=== PATIENT | female | born 1940 | race Caucasian/White ===

== ENCOUNTER 2020-09-22 20:29 | Inpatient (IN) | payer MEDICARE, SELFPAY ==
[2020-09-22 20:17] VITALS: BP 143/95; PULSE 66; RESP 18; TEMP 36.9; O2SAT 100; BMI 28.8
[2020-09-22 20:30] VITALS: PULSE 65
--- NOTE | 2020-09-22 20:33 | HP.PCM.HOS_ITS ---
[facility] - General General Date of Admission: 09/22/20 HPI Narrative CAT SALGUERO, is a 80 F with a significant history of COPD, CHF, diabetes mellitus who presents with at least 2 weeks history of progressively worsening shortness of breath. Associated for symptoms is wheezes; productive cough of yellow sputum; orthopnea; paroxysmal nocturnal dyspnea; weight gain of about 10 pounds in 1 months. She denies any fever or chills. She reports poor appetite; fatigue and weakness. Reportedly previously he was infected with the COVID-19 virus and spent about 5 days at a hospital. She has not been vaccinated against Covid. She was transferred from [facility] because of lack of beds. [facility], [facility] Medical History (Updated 09/22/20 @ 22:[address] Anthony Sparks MD) Congestive heart failure COPD (chronic obstructive pulmonary disease) Diabetes mellitus, type 2 Allergy/AdvReac Type Severity Reaction Status Date / Time spironolactone Allergy Hives Verified 09/22/20 22:20 [From Aldactone] carvedilol [From Coreg] AdvReac PT UNSURE Verified 09/22/20 22:20 OF REACTION lisinopril AdvReac PT UNSURE Verified 09/22/20 22:20 OF REACTION meperidine [From Demerol] AdvReac PT UNSURE Verified 09/22/20 22:20 OF REACTION valsartan AdvReac PT UNSURE Verified 09/22/20 22:20 OF REACTION Family History (Updated 09/22/20 @ 20:[address] Anthony Sparks MD) Mother Diabetes Father Cancer Surgical History (Updated 09/22/20 @ 20:[address] Anthony Sparks MD) H/O: hysterectomy Hx of appendectomy Social History (Updated 09/22/20 @ 20:[address] Anthony Sparks MD) Smoking Status: Former smoker ROS Constitutional Constitutional: Reports anorexia and change in weight Eyes Eyes: Denies blurry vision, change in eye color, change in vision, discharge from eye(s), double vision, erythema, eye pain, loss of vision or other ENT HEENT: Denies abnormal hearing, dysphagia, ear pain, epistaxis, headache(s), hearing loss, nasal congestion, nasal discharge, post nasal drip, sinus pressure, sore throat or other Cardiovascular Cardiovascular: Reports dyspnea on exertion, orthopnea and paroxysmal nocturnal dyspnea Respiratory/Chest Respiratory/Chest: Reports cough, excessive phlegm production, shortness of breath with exertion and wheezing Gastrointestinal Gastrointestinal: Denies abdominal pain, coffee ground emesis, constipation, diarrhea, dyspepsia, hematemesis, hematochezia, loose stools, melena, nausea, vomiting or other Genitourinary Genitourinary: Denies burning urination, difficulty urinating, dysuria, hematuria, nocturia, urinary frequency, urinary hesitancy, urinary incontinence, urinary urgency or other Musculoskeletal Musculoskeletal: Denies arthralgias, back pain, joint pain, joint stiffness, joint swelling, myalgias, neck pain or other Neurologic Neurologic: Denies abnormal gait, abnormal speech, confusion, disequilibrium, dizziness, focal weakness, headache(s), numbness, paresthesias, seizure-like activity, seizures, syncope, tingling, tremor(s) or other Psychiatric Psychiatric: Denies anxiety, depression, homicidal ideation, suicidal ideation or other Endocrine Endocrinology: Denies change in body appearance, cold intolerance, excessive sweating, heat intolerance, polydipsia, polyuria or other Hematologic/Lymphatic Hematologic/Lymphatic: Denies anemia, easy bleeding, easy bruising, lymphadenopathy or other Allergic/Immunologic Allergic/Immunologic: Denies rhinitis, hives, eczemia, asthma or other Physical Exam Const alert and oriented x3 HEENT normocephalic and head/scalp atraumatic Resp Effort and Inspection: uses accessory muscles Auscultation: wheezes; Negative for crackles Cardio regular rate, regular rhythm, S1 normal heart sound and S2 normal heart sound Extremity full ROM Peripheral Pulses: Yes pulses 2+ throughout Skin No no rashes or lesions noted, No no wounds and skin turgor normal Neuro oriented x3 Sensorium / Orientation: awake and alert Psych affect normal Mood & Affect: Negative for depressed or anxious Assessment & Plan Assessment/Plan (1) Diabetes mellitus, type 2: QUALIFIERS: Diabetes mellitus complication status: without complication Diabetes mellitus chcf insulin use: with predatory animal exterminator use Qualified Code(s): E11.9 - Type 2 diabetes mellitus without complications; Z79.4 - manager long term care (current) use of insulin (2) COPD exacerbation: PLAN: Acute COPD exacerbation Impression of chest x-ray by radiology: Cardiomegaly. Pacemaker. Finding suggestive of CHF versus pneumonia. CXR independently reviewed confirms Chest x-ray with cardiomegaly; enlarged bilateral pulmonary vessels and opacities. Scheduled DuoNeb Albuterol as needed Received ceftriaxone and azithromycin at outside hospital ED. Ceftriaxone and azithromycin continued. Received Decadron at outside hospital. Solu-Medrol [id number] ordered. Oxygen as needed Review of emergency department labs from outside hospital showed negative rapid Covid screen. Review of emergency department labs from outside hospital showed normal white counts. Monitor BMP and CBC Abnormal x-ray and weight gain Pro BNP is also hospital was 645 high (normal 0-4 50) Continue home Lasix Check echocardiogram. Diabetes mellitus On home basal insulin. Glucose at outside hospital on BMP was 80. Accu-Chek with correction scale insulin ordered. Hold home basal insulin DVT prophylaxis: Eliquis continued Miscellaneous: Patient on Eliquis. She does not know why she is on Eliquis but states that it is for her heart and she has a pacemaker. Charges/Coding Visit Charges Inpatient E&M: 59818 Init Hosp L3
[2020-09-22 20:45] VITALS: O2SAT 100
[2020-09-22 22:20] VITALS: RESP 26; O2SAT 93
--- NOTE | 2020-09-22 22:56 | ECHOD_ITS ---
Reason For Study: SOB Procedure This was a 2D Doppler, Color Flow transthoracic echocardiogram. The study was technically difficult. Definity deferred d/t elevated PAP. Exam performed portable in patient room. Left Ventricle Normal left ventricle. The estimated ejection fraction is EF 60-65 %. Right Ventricle Normal right ventricle. Normal systolic function. Atria The left atrium is moderately enlarged. Normal right atrium. Mitral Valve There is moderate to severe mitral annular calcification. Mild (1+) mitral valve insufficiency. Tricuspid Valve Normal tricuspid valve. Moderate (2+) tricuspid valve insufficiency. Aortic Valve Aortic sclerosis, no stenosis. Pulmonic Valve The pulmonic valve is not well visualized. Great Vessels Normal aortic root. Pericardium/Pleural No pericardial effusion. MMode/2D Measurements & Calculations LVIDd: 4.7 cm IVSd: 1.1 cm Ao root diam: 3.0 cm LVIDs: 3.5 cm LVPWd: 1.1 cm RVDd: 4.3 cm FS: 26.6 % LAV(MOD-bp): 94.2 ml LVAd ap4: 26.1 cm2 SV(MOD-sp4): 54.1 ml LAV(MOD-bp) Indexed: 50.8 ml/m2 LVLd ap4: 6.8 cm LAV(MOD-sp2): 126.1 ml EDV(MOD-sp4): 81.6 ml LAV(MOD-sp4): 71.1 ml EDV(sp4-el): 85.3 ml LVAs ap4: 14.9 cm2 LVLs ap4: 6.4 cm ESV(MOD-sp4): 27.5 ml ESV(sp4-el): 29.4 ml EF(MOD-sp4): 66.3 % EF(sp4-el): 65.6 % SV(sp4-el): 55.9 ml LA A4 area: 25.3 cm2 LA dimension(2D): 5.0 cm RA A4 area: 19.5 cm2 Doppler Measurements & Calculations Lat Peak E' Kush: 5.7 cm/sec Med Peak E' Kush: 3.1 cm/sec MV V2 max: 142.8 cm/sec MV max P.2 mmHg MV V2 mean: 79.9 cm/sec MV mean P.9 mmHg MV V2 VTI: 40.2 cm Ao V2 max: 204.8 cm/sec LV V1 max: 109.1 cm/sec TR max kush: 414.9 cm/sec Ao max P.8 mmHg LV V1 max P.2 mmHg TR max P.9 mmHg Ao V2 mean: 146.9 cm/sec LV V1 mean P.0 mmHg Ao mean P.5 mmHg LV V1 mean: 77.8 cm/sec Ao V2 VTI: 46.5 cm LV V1 VTI: 25.4 cm MV P1/2t-pr_phl: 53.9 msec ECHO/Echo Complete Interpretation Summary The estimated ejection fraction is EF 60-65 %. Mild MR Moderate TR AV sclerosis pacemaker lead on R.side. Ordering Physician: Anthony Sparks Performed By: Ani Mcclendon RDCS, RVT
[2020-09-22 23:00] VITALS: PULSE 66
[2020-09-22] MEDS: guaiFENesin 1,200 MG Tablet 1200 MG PO (23:46)
[2020-09-22] MEDS: 0.9% Saline Lock 10 ML Syringe IV (23:52)
[2020-09-23] VITALS (15 sets, daily range): BP systolic 110–139; BP diastolic 38–50; PULSE 63–79; RESP 16–20; TEMP 36.4–36.8; O2SAT 91–98
[2020-09-23] MEDS: traZODone 100 MG Tablet 200 MG PO ×2 (00:04→21:48)
[2020-09-23 00:06] LABS: Bedside Glucose 369 mg/dL (70-110)
[2020-09-23 05:29] LABS: Absolute Lymphocyte Count 0.68 X10^3/uL (0.83-4.51); Absolute Neutrophil Count 9.5 X10^3/uL (2.0-7.7); Basophil# 0.01 X10^3/uL; Basophil% 0.1 % (0-1); Hematocrit 36.5 % (37-47); Hemoglobin 11.6 g/dL (12.0-15.0); Lymphocyte # 0.68 X10^3/ul (0.83-4.51); Lymphocyte % 6.6 % (19-41); Mean Corp Hgb Conc 31.8 g/dL (32-36); Mean Corpuscular Hgb 28.9 pg (27.0-32.0); Mean Platelet Vol. 9.8 fl (6.2-12.0); Monocyte# 0.09 X10^3/uL; Monocyte% 0.9 % (0-10); NRBC Flagged by Analyzer 0 % (0-5); Neutrophil # 9.49 X10^3/uL (2.7-7.7); Neutrophil % 92.1 % (47-70); Platelet Count 159 K/mm3 (150-450); RBC Distribution Width CV 13.2 % (11.6-14.6); RBC Distribution Width SD 44.6 fl (35.1-43.9); Red Blood Count 4.01 M/mm3 (4.2-5.4); White Blood Count 10.3 K/mm3 (4.4-11.0)
[2020-09-23 05:46] LABS: Anion Gap 7 (5-15); BUN 26 mg/dL (7-18); BUN/Creat Ratio 19.4 RATIO (10-20); Calcium,Total 8.7 mg/dL (8.5-10.1); Chloride 104 mmol/L (98-107); Creatinine, Serum 1.34 mg/dL (0.55-1.02); EST Glomerular Filtration Rate 40 mL/min (>60); Est Glom Filt Rate - Afr Amer 49 mL/min (>60); Estimated Creatinine Clearance 29.63 ml/min; Glucose 312 mg/dL (74-106); Potassium 4.3 mmol/L (3.5-5.1); Sodium Level 138 mmol/L (136-145)
[2020-09-23] MEDS: 0.9% Saline Lock 10 ML Syringe IV ×3 (06:45→21:54)
[2020-09-23 06:50] LABS: Bedside Glucose 297 mg/dL (70-110)
[2020-09-23] MEDS: Ipratropium/Albuterol Sulfate 3 ML AMPUL.NEB INHALATION ×4 (06:53→19:13)
[2020-09-23] MEDS: Aspirin 81 MG TAB.CHEW PO (07:39)
[2020-09-23] MEDS: Insulin Lispro 100 UNIT/ML INSULN.PEN SC ×4 (07:39→22:33)
[2020-09-23] MEDS: Ceftriaxone 1 GM/50 ML BAG IV (09:22)
[2020-09-23] MEDS: guaiFENesin 1,200 MG Tablet 1200 MG PO ×2 (09:23→21:49)
[2020-09-23] MEDS: Furosemide 40 MG Tablet PO (09:23)
[2020-09-23] MEDS: Calcium Carb/Vitamin D 1 TABLET Tablet PO (09:23)
[2020-09-23] MEDS: amLODIPine 5 MG Tablet PO (09:23)
[2020-09-23] MEDS: APIXABAN 5 MG TABLET PO ×2 (09:23→21:49)
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
--- NOTE | 2020-09-23 11:17 | CASEMGMT ---
Social Work SW met with pt in room and introduced self and role of SW. SW discussed advance directives with pt. Pt not interested in completing documents at this time but is appreciative of explanation of HCPOA and LW. Documents left with pt along with a SW Advance Directive Rack Card. Pt aware she can notify SW as inpatient or make an outpatient appointment to complete documents. No other SW needs at this time. CHLOE Julian
[2020-09-23 11:51] LABS: Bedside Glucose 497 mg/dL (70-110)
[2020-09-23 11:51] LABS: Bedside Glucose > 500 mg/dL (70-110)
[2020-09-23 11:51] LABS: Bedside Glucose > 500 mg/dL (70-110)
[2020-09-23] MEDS: Insulin Lispro 100 UNIT/ML INSULN.PEN 10 UNIT SC (11:51)
--- NOTE | 2020-09-23 12:37 | CHAPLAIN ---
Type of Pastoral Visit _x__ Initial Visit ___ Follow-up Visit ___ On-call Visit ___ General Patient Visit ___ Spiritual Assessment ___ Family Conference ___ Bereavement ___ Rapid Response ___ Code Blue ___ Other (describe below) Pastoral Care Referral From _x__ Patient ___ Family ___ Nurse ___ Physician ___ Prints And Drawings Curator ___ Vp Compliance ___ Other (describe below) Sacrament/Intervention _x__ Active listening ___ Anointing ___ Pentecostalism ___ Bereavement ___ Communion ___ Goldie exploration ___ ___ Life review _x__ Prayer ___ Reconciliation ___ Sacrament of Sick ___ Supportive presence ___ Wedding ___ Other (describe below) Pastoral Comments
[2020-09-23 14:11] LABS: Bedside Glucose > 500 mg/dL (70-110)
--- NOTE | 2020-09-23 14:43 | PCM.PN.HOSP ---
Documented by User: Talon KINCAID 09/23/20 14:53 Subjective Subjective Patient is an 80-year-old female resting in bed eating breakfast, alert and oriented x3. Patient reports a slight improvement in her shortness of breath from admission. Denies chest pain, shortness of breath, palpitations, hemoptysis, sputum production, fever, chills, N/V/D. Objective Data Objective Data Vital Signs: Vital Signs Temp Pulse Resp BP Pulse Ox 97.6 F L 63 18 127/44 H 93 09/23/20 13:12 09/23/20 13:12 09/23/20 13:12 09/23/20 13:12 09/23/20 13:12 Oxygen Flow Rate (L/min) 91 Oxygen Delivery Method Room Air Weight: 176 lb 9.444 oz Body Mass Index (BMI) 28.8 Intake & Output: Intake and Output for Last 24 Hours 09/21/20 09/22/20 09/23/20 23:59 23:59 23:59 Intake Total 705 / 705 Output Total 0 / 0 Balance 705 / 705 Medical Nutrition Assessment Dietitian: Nutrition Therapy Diagnosis Start: 09/23/20 14:09 Freq: Status: Active Protocol: Document 09/23/20 14:09 (Rec: 09/23/20 14:09 [id number]) Nutrition Malnutrition Evidence of Malnutrition Exists No Clinical Problem Altered Nutrient-Related Laboratory Values Etiology r/t endocrine dysfunction and steroid medication Signs/Symptoms as evidenced by glucose 312 and POC glucose 369, 297. Status Active Problem Recommendation Dietitian Recommendations/Changes Recommended cardiac 1,600 calorie controlled diet. Fluid restriction as indicated . Lab / Micro Data Result Diagrams: 09/23/20 05:20 09/23/20 05:20 Labs: Laboratory Results - last 24 hr 09/22/20 21:14: POC Glucose 369 H 09/23/20 05:20: WBC 10.3, RBC 4.01 L, Hgb 11.6 L, Hct 36.5 L, MCV 91.0, MCH 28.9, MCHC 31.8 L, RDW Std Deviation 44.6 H, RDW Coeff of Jose 13.2, Plt Count 159, MPV 9.8, Immature Gran % (Auto) 0.300, Neut % (Auto) 92.1 H, Lymph % (Auto) 6.6 L, [place] % (Auto) 0.9, Eos % (Auto) 0.0, Baso % (Auto) 0.1, Absolute Neuts (auto) 9.5 H, Absolute Lymphs (auto) 0.68 L, Nucleated RBC % 0 09/23/20 05:20: Sodium 138, Potassium 4.3, Chloride 104, Carbon Dioxide 27.0, Anion Gap 7, BUN 26 H, Creatinine 1.34 H, Estim Creat Clear Calc 29.63, Est GFR (MDRD) Af Amer 49 L, Est GFR (MDRD) Non-Af 40 L, BUN/Creatinine Ratio 19.4, Glucose 312 H, Calcium 8.7 09/23/20 06:41: POC Glucose 297 H 09/23/20 10:57: POC Glucose > 500 H* 09/23/20 10:59: POC Glucose > 500 H* 09/23/20 11:43: POC Glucose 497 H* 09/23/20 14:02: POC Glucose > 500 H* Radiography Diagnostic Testing: Radiology Impression Echocardiogram 09/22/20 22:56 Interpretation Summary The estimated ejection fraction is EF 60-65 %. Mild MR Moderate TR AV sclerosis pacemaker lead on R.side. Ordering Physician: Anthony Sparks Performed By: Ani Mcclendon, SHIREENCS, RVT Physical Exam Const alert, oriented x3 and no apparent distress HEENT head/scalp atraumatic and moist oral mucous membranes Head and Scalp: normocephalic Eyes PERRL, EOMs intact bilaterally and conjunctivae normal Neck no lymphadenopathy, supple and no JVD Resp normal respiratory effort, no retractions and no use of accessory muscles Auscultation: diminished lung sounds Cardio regular rate, regular rhythm, no murmurs and no JVD GI normal to inspection, nondistended, normoactive bowel sounds, soft to palpation and non-tender Extremity normal to inspection, full ROM and no clubbing, cyanosis or edema Skin no rashes or lesions noted, no wounds and skin turgor normal Neuro CN's II-XII intact bilaterally Psych affect normal Assessment & Plan Assessment/Plan (1) Diabetes mellitus, type 2: QUALIFIERS: Diabetes mellitus complication status: without complication Diabetes mellitus assisted insulin use: with termite treater helper use Qualified Code(s): E11.9 - Type 2 diabetes mellitus without complications; Z79.4 - watermelon harvesting supervisor (current) use of insulin (2) COPD exacerbation: PLAN: Day 2: See subjective. Discharge planning: Patient to be discharged home when medically ready. Possibly ready for discharge on 09/24 providing that the blood sugars are stable overnight and respiratory status also remained stable. 1) acute on chronic COPD exacerbation. Currently satting at 93% on room air. Chest x-ray on admission demonstrated cardiomegaly with bilateral pulmonary opacities and opacities. Rapid Covid negative. Plan; scheduled duo nebs, albuterol as needed, continue to monitor CBC and BMP, continue ceftriaxone azithromycin, continue Solu-Medrol. 2) CHF Could be contributing to #1. Echocardiogram on 09/23/2020 demonstrated an estimated EF of 60 to 65%. BMP on admission was high at 645. Plan; continue Lasix 40 mg p.o. daily. 3) DM2 Blood sugars have been elevated throughout admission over 500 despite sliding scale insulin. Plan; Lantus 20 units twice daily initiated, short acting insulin 15 units 3 times daily initiated, continue sliding scale insulin with Accu-Cheks. DVT prophylaxis: Eliquis continued Patient seen by Talon Ortiz PA-C, under the supervision of Dr. Currie. Documented by User: Dr. Nasim Currie MD 09/23/20 15:12 Subjective Subjective Patient admitted with COPD exacerbation. 2D echo was done today. She still has shortness of breath and wheezing during conversation. History of coronary artery status post stents and TAVR and pacemaker. Follows outside mill operator head and ct scan tech in [place]. Objective Data Lab / Micro Data Result Diagrams: 09/23/20 05:20 09/23/20 05:20 Physical Exam Narrative Physical exam General: Alert, Oriented x3, Cooperative HEENT: Atraumatic, PERRLA, EOMI, Normocephalic Oral: No Gingival or Mucosal Lesions/ Ulcerations Neck: Supple, No JVD, Negative Carotid Bruits Lungs: Air entry diminished in bilateral lungs. Bilateral wheezing present. Dyspnea at rest Cardiovascular: Regular rate, Regular Rhythm, Normal S1, Normal S2, systolic murmur over LLSB Abdomen: Bowel Sounds Present, Soft, Non Tender, Non-Distended : No renal angle tenderness. No suprapubic tenderness. Extremities: No edema, Capillary Refill Less than 3 Seconds Skin: No rashes, No breakdown Musculoskeletal: No Tenderness to Palpation of Joints or Extremities Neurological: Cranial nerves II-XII grossly intact, Deep Tendon Reflexes 2+/4 and Symmetrical, Neuro grossly intact Psych/Mental Status: Normal Affect, Appropriate. Assessment & Plan Assessment/Plan (1) Diabetes mellitus, type 2: QUALIFIERS: Diabetes mellitus complication status: without complication Diabetes mellitus termite treater helper insulin use: with assisted use Qualified Code(s): E11.9 - Type 2 diabetes mellitus without complications; Z79.4 - watermelon harvesting supervisor (current) use of insulin (2) COPD exacerbation: PLAN: This patient was seen in conjunction with CODI Logan. I have independently interviewed and examined the patient and reviewed pertinent history, examination findings, laboratory and plan of management. I have reviewed the note and agree with the documented findings with the few additional points. In brief, patient is admitted for acute exacerbation probably secondary to bilateral pneumonia as outside ED chest x-ray shows bilateral pulmonary opacities. On bronchodilator, IV Solu-Medrol, ceftriaxone and azithromycin. Patient had high blood sugar, glucose in the 500s therefore Solu-Medrol changed to prednisone. Shortness of breath is better. 2D echo EF 65% with moderate TR, aortic sclerosis. Patient reports transcatheter aortic valve replacement and pacemaker gang supervisor pipe lines shows paced rhythm. Patient does not have leg edema. Patient history of diabetes mellitus type 2 and chronic HFpEF. On Lantus 20 units twice daily and Humalog insulin 15 units 3 times daily with meals along with sliding scale insulin. Monitor glucose. I have discussed my assessment with CODI Logan and orders have been reviewed. Clinical Impression(s) from Imaging Studies Echocardiogram 09/22/20 22:56 Interpretation Summary The estimated ejection fraction is EF 60-65 %. Mild MR Moderate TR AV sclerosis pacemaker lead on R.side. Charges/Coding Visit Charges Inpatient E&M: 13991 Subs Hosp L2
[2020-09-23] MEDS: Insulin Lispro 100 UNIT/ML INSULN.PEN 15 UNIT SC (16:23)
[2020-09-23 17:21] LABS: Bedside Glucose 462 mg/dL (70-110)
[2020-09-23 23:01] LABS: Bedside Glucose > 500 mg/dL (70-110)
[2020-09-24] VITALS (9 sets, daily range): BP systolic 122–133; BP diastolic 42–57; PULSE 57–67; RESP 15–18; TEMP 36.4–36.8; O2SAT 93–97
[2020-09-24 05:38] LABS: Absolute Neutrophil Count 11.8 X10^3/uL (2.0-7.7); Basophil# 0.01 X10^3/uL; Basophil% 0.1 % (0-1); Hematocrit 33.6 % (37-47); Hemoglobin 10.8 g/dL (12.0-15.0); Lymphocyte % 9.2 % (19-41); Mean Corp Hgb Conc 32.1 g/dL (32-36); Mean Corpuscular Hgb 28.8 pg (27.0-32.0); Mean Corpuscular Volume 89.6 fL (81-99); Mean Platelet Vol. 10.1 fl (6.2-12.0); Monocyte% 6.4 % (0-10); NRBC Flagged by Analyzer 0 % (0-5); Neutrophil # 11.79 X10^3/uL (2.7-7.7); Neutrophil % 83.9 % (47-70); Platelet Count 168 K/mm3 (150-450); RBC Distribution Width CV 13.4 % (11.6-14.6); RBC Distribution Width SD 43.8 fl (35.1-43.9); Red Blood Count 3.75 M/mm3 (4.2-5.4); White Blood Count 14.1 K/mm3 (4.4-11.0)
[2020-09-24 05:52] LABS: Anion Gap 9 (5-15); BUN 45 mg/dL (7-18); BUN/Creat Ratio 31.9 RATIO (10-20); Calcium,Total 8.5 mg/dL (8.5-10.1); Chloride 100 mmol/L (98-107); Creatinine, Serum 1.41 mg/dL (0.55-1.02); EST Glomerular Filtration Rate 38 mL/min (>60); Est Glom Filt Rate - Afr Amer 46 mL/min (>60); Estimated Creatinine Clearance 28.16 ml/min; Glucose 295 mg/dL (74-106); Sodium Level 137 mmol/L (136-145)
[2020-09-24] MEDS: Insulin Lispro 100 UNIT/ML INSULN.PEN SC (06:25)
[2020-09-24 07:00] LABS: Bedside Glucose 278 mg/dL (70-110)
[2020-09-24] MEDS: Ipratropium/Albuterol Sulfate 3 ML AMPUL.NEB INHALATION (07:10)
[2020-09-24] MEDS: Aspirin 81 MG TAB.CHEW PO (10:18)
[2020-09-24] MEDS: predniSONE 20 MG Tablet 40 MG PO (10:18)
--- NOTE | 2020-09-24 10:18 | PCM.DC ---
Discharge Instructions Diet Discharge Diet: No restrictions Activity Discharge Activity: Return to Normal Activity Weight Bearing Status: Weight bearing as tolerated Dressing / Incision Call your doctor if you observe: Fever of 101 or Higher, Numbness or Tingling, Shortness of breath, Dizziness, Chest pain, Increased palpitations (irregular heartbeat) and Calf discomfort Follow Up Care Please Follow Up With: Primary care provider When: Within the next two weeks. Test Results: Test results from this visit will be discussed in further detail at your follow-up appointment, if applicable. Discharge Plan Admission Admit Date/Time: 09/22/20 20:29 Primary Reason for Your Visit: Shortness of breath Attending Provider: Nasim Currie Discharge Orders/Prescriptions Prescriptions: New albuterol sulfate 90 mcg/actuation HFA aerosol inhaler 2 puff inhalation Q6H PRN (Reason: shortness of breath or wheezing) Qty: 8.5 RF: 0 Trelegy Ellipta 100-62.5-25 mcg blister with device 1 inh inhalation DAILY Qty: 60 RF: 0 prednisone 20 mg tablet 40 mg PO DAILY Qty: 10 RF: 0 Mucus Relief ER 1,200 mg tablet extended release 12hr 1,200 mg PO BID Qty: 14 RF: 0 Continued Eliquis 5 mg tablet 5 mg PO BID RF: 0 trazodone 100 mg Tablet 200 mg PO QHS RF: 0 amlodipine 5 mg tablet 5 mg PO DAILY RF: 0 furosemide 40 mg tablet 40 mg PO DAILY RF: 0 aspirin 81 mg Tablet 81 mg PO DAILY RF: 0 Calcium 500 + D 500 tablet PO/SL DAILY RF: 0 nitroglycerin 0.4 mg sublingual PRN PRN (Reason: Chest Pain) RF: 0 Novolin N Flexpen 100 unit/mL (3 mL) Insulin Pen 20 unit SUBCUT QHS RF: 0 Novolin N Flexpen 100 unit/mL (3 mL) Insulin Pen 40 unit SUBCUT DAILY RF: 0 Referrals / Follow Up: ANYA SHOOK [Other] - Within 2 Weeks Disposition Disposition (needs filled in before D/C Order can be placed): Home, Self Care
[2020-09-24] MEDS: APIXABAN 5 MG TABLET PO (10:19)
[2020-09-24] MEDS: guaiFENesin 1,200 MG Tablet 1200 MG PO (10:19)
[2020-09-24] MEDS: Calcium Carb/Vitamin D 1 TABLET Tablet PO (10:20)
[2020-09-24] MEDS: amLODIPine 5 MG Tablet PO (10:20)
[2020-09-24] MEDS: Ceftriaxone 1 GM/50 ML BAG IV (10:30)
[2020-09-24] MEDS: 0.9% Saline Lock 10 ML Syringe IV (10:30)
--- NOTE | 2020-09-24 10:51 | CASEMGMT ---
KYLEIGH LACEY NOTE: Pt being discharged home. Dr Currie e-scribed Trelegy inhaler and Albuterol inhaler. Call placed to Jeremy in [facility] pharmacy for almeida check. Albuterol is $15. Trelegy is $47. Pt made aware of same and states, I can't afford that. Just forget it. Per [facility] on-line formulary list, Symbicort and Advair are both Tier 2 and cost for pt is $0-9.20. Dr Currie made aware. Dr Currie e-scribed Symbicort to [facility]. Per Jeremy, cost of Symbicort name brand and generic are both coming back @ $47 and he also checked on Advair and it is also coming back at $47. Pt made aware that almeida checks have been done to try and find a similar inhaler @ less cost and that the cost is all $47. Pt states Well I guess It'll have to be affordable and states she would be willing to make it work. Pt advised to contact her PCP and to discuss this further, if she is not able to afford refills in the future. She voices understanding. Call placed back to [facility] @ [facility] pharmacy and he was made aware that pt is agreeable to paying for medications today. Pt to be called for payment and meds to be delivered to pt's room. Pt does not qualify for Home O2. Pt denies having any other discharge planning needs/ concerns. Niko BRADY RN CM
--- NOTE | 2020-09-24 11:10 | PCM.DC.SUM ---
Documented by User: Talon KINCAID 09/24/20 11:32 Providers Date of Admission: 09/22/20 Primary Care Physician: ANYA SHOOK Reason For Visit: COPD EXACERBATION, PNEUMONIA Diagnosis Discharge Diagnosis (1) Diabetes mellitus, type 2: Status: Acute Code(s): E11.9 - Type 2 diabetes mellitus without complications Qualifiers: Diabetes mellitus complication status: without complication Diabetes mellitus terminal press operator insulin use: with terminal press operator use Qualified Code(s): E11.9 - Type 2 diabetes mellitus without complications; Z79.4 - retirement (current) use of insulin (2) COPD exacerbation: Status: Chronic Code(s): J44.1 - Chronic obstructive pulmonary disease with (acute) exacerbation Medications at Discharge Home Medications Calcium 500 + D 500 tablet PO/SL DAILY 09/22/20 Eliquis 5 mg PO BID 09/22/20 Novolin N Flexpen 20 unit SUBCUT QHS 09/22/20 Novolin N Flexpen 40 unit SUBCUT DAILY 09/22/20 amlodipine 5 mg PO DAILY 09/22/20 aspirin 81 mg PO DAILY 09/22/20 furosemide 40 mg PO DAILY 09/22/20 nitroglycerin 0.4 mg SUBLINGUAL PRN PRN 09/22/20 trazodone 200 mg PO QHS 09/22/20 albuterol sulfate 2 puff INHALATION Q6H PRN #8.5 g 09/24/20 budesonide-formoterol [Symbicort] 2 puff INHALATION BID #10.2 g 09/24/20 guaifenesin [Mucus Relief ER] 1,200 mg PO BID #14 tab 09/24/20 prednisone 40 mg PO DAILY #10 tab 09/24/20 Hospital Course Summary of Care Provided Minutes Spent on Discharge: 35 Hospital Course: Disposition: Patient to be discharged home, no home health care needs or additional therapies identified. 1) acute on chronic COPD exacerbation. Currently satting at 97% on room air. Chest x-ray on admission demonstrated cardiomegaly with bilateral pulmonary opacities and opacities. Rapid Covid negative. Plan; albuterol as needed initiated on discharge, Symbicort initially on discharge, prednisone burst initiated at discharge 2) CHF Echocardiogram on 09/23/2020 demonstrated an estimated EF of 60 to 65%. BMP on admission was high at 645. Plan; continue Lasix 40 mg p.o. daily. 3) DM2 Blood sugars return to high 200s after insulin adjustment while admitted. Plan; reinitiate home insulin regimen Patient seen by Talon Ortiz PA-C, under the supervision of Dr. Currie. Physical Exam Narrative Patient is an 80-year-old female comfortably resting in bed, alert and orient x3. Patient reports symptomatic improvement in regards to her shortness of breath. Denies chest pain, shortness of breath, palpitations, hemoptysis, sputum production, fever, chills, N/V/D. Const alert, oriented x3 and no apparent distress HEENT normocephalic, head/scalp atraumatic and hearing grossly normal bilaterally Eyes PERRL, EOMs intact bilaterally and conjunctivae normal Neck no lymphadenopathy, supple and no JVD Resp normal respiratory effort, no retractions and no use of accessory muscles Cardio regular rate, regular rhythm, no murmurs and no JVD GI normal to inspection, nondistended, normoactive bowel sounds, soft to palpation and non-tender Extremity normal to inspection, full ROM and no clubbing, cyanosis or edema Skin no rashes or lesions noted, no wounds and skin turgor normal Neuro CN's II-XII intact bilaterally Psych affect normal Medical Records Data Medical Nutrition Assessment Dietitian: Nutrition Therapy Diagnosis Start: 09/23/20 14:09 Freq: Status: Active Protocol: Document 09/23/20 14:09 (Rec: 09/23/20 14:09 [id number]) Nutrition Malnutrition Evidence of Malnutrition Exists No Clinical Problem Altered Nutrient-Related Laboratory Values Etiology r/t endocrine dysfunction and steroid medication Signs/Symptoms as evidenced by glucose 312 and POC glucose 369, 297. Status Active Problem Recommendation Dietitian Recommendations/Changes Recommended cardiac 1,600 calorie controlled diet. Fluid restriction as indicated . Weight / BMI Weight Weight: 173 lb 8.061 oz Body Mass Index (BMI) 28.8 ABG / Lab / Microbiology Data Result Diagrams: 09/24/20 05:03 09/24/20 05:03 Laboratory: Laboratory Results - last 24 hr 09/23/20 10:57: POC Glucose > 500 H* 09/23/20 10:59: POC Glucose > 500 H* 09/23/20 11:43: POC Glucose 497 H* 09/23/20 14:02: POC Glucose > 500 H* 09/23/20 16:22: POC Glucose 462 H* 09/23/20 21:47: POC Glucose > 500 H* 09/24/20 05:03: WBC 14.1 H, RBC 3.75 L, Hgb 10.8 L, Hct 33.6 L, MCV 89.6, MCH 28.8, MCHC 32.1, RDW Std Deviation 43.8, RDW Coeff of Jose 13.4, Plt Count 168, MPV 10.1, Immature Gran % (Auto) 0.400, Neut % (Auto) 83.9 H, Lymph % (Auto) 9.2 L, Mccormick % (Auto) 6.4, Eos % (Auto) 0.0, Baso % (Auto) 0.1, Absolute Neuts (auto) 11.8 H, Absolute Lymphs (auto) 1.30, Nucleated RBC % 0 09/24/20 05:03: Sodium 137, Potassium 4.0, Chloride 100, Carbon Dioxide 28.0, Anion Gap 9, BUN 45 H, Creatinine 1.41 H, Estim Creat Clear Calc 28.16, Est GFR (MDRD) Af Amer 46 L, Est GFR (MDRD) Non-Af 38 L, BUN/Creatinine Ratio 31.9 H, Glucose 295 H, Calcium 8.5 09/24/20 06:21: POC Glucose 278 H Radiography Diagnostic Testing: Radiology Impression Echocardiogram 09/22/20 22:56 Interpretation Summary The estimated ejection fraction is EF 60-65 %. Mild MR Moderate TR AV sclerosis pacemaker lead on R.side. Ordering Physician: Anthony Sparks Performed By: Ani Mcclendon, YARIEL, RVT D/C Instructions Discharge Diet: No restrictions Weight Bearing Status: Weight bearing as tolerated Call your doctor if you observe: Fever of 101 or Higher, Numbness or Tingling, Shortness of breath, Dizziness, Chest pain, Increased palpitations (irregular heartbeat) and Calf discomfort Please Follow Up With: Primary care provider When: Within the next two weeks. Meaningful Use Info Meaningful Use Diagnoses (Choose all that apply): None applicable Discharge Plan Admission Admit Date/Time: 09/22/20 20:29 Primary Reason for Your Visit: Shortness of breath Attending Provider: Nasim Currie Instructions Additional Instructions / Restrictions: Patient Problems: Altered Health Status related to Hospitalization Patient Goals: *Optimal Level of Health *Keep Appointments *Medication Compliance *Remain Safe Discharge Orders/Prescriptions Prescriptions: New albuterol sulfate 90 mcg/actuation HFA aerosol inhaler 2 puff inhalation Q6H PRN (Reason: shortness of breath or wheezing) Qty: 8.5 RF: 0 prednisone 20 mg tablet 40 mg PO DAILY Qty: 10 RF: 0 Mucus Relief ER 1,200 mg tablet extended release 12hr 1,200 mg PO BID Qty: 14 RF: 0 budesonide-formoterol [Symbicort] 160-4.5 mcg/actuation HFA aerosol inhaler 2 puff inhalation BID Qty: 10.2 RF: 0 Continued Eliquis 5 mg tablet 5 mg PO BID RF: 0 trazodone 100 mg Tablet 200 mg PO QHS RF: 0 amlodipine 5 mg tablet 5 mg PO DAILY RF: 0 furosemide 40 mg tablet 40 mg PO DAILY RF: 0 aspirin 81 mg Tablet 81 mg PO DAILY RF: 0 Calcium 500 + D 500 tablet PO/SL DAILY RF: 0 nitroglycerin 0.4 mg sublingual PRN PRN (Reason: Chest Pain) RF: 0 Novolin N Flexpen 100 unit/mL (3 mL) Insulin Pen 20 unit SUBCUT QHS RF: 0 Novolin N Flexpen 100 unit/mL (3 mL) Insulin Pen 40 unit SUBCUT DAILY RF: 0 Referrals / Follow Up: ANYA SHOOK [Other] - Within 2 Weeks Disposition Disposition (needs filled in before D/C Order can be placed): Home, Self Care Documented by User: Dr. Nasim Currie MD 09/24/20 14:22 Providers Date of Admission: 09/22/20 Reason For Visit: COPD EXACERBATION, PNEUMONIA Medications at Discharge Home Medications Calcium 500 + D 500 tablet PO/SL DAILY 09/22/20 Eliquis 5 mg PO BID 09/22/20 Novolin N Flexpen 20 unit SUBCUT QHS 09/22/20 Novolin N Flexpen 40 unit SUBCUT DAILY 09/22/20 amlodipine 5 mg PO DAILY 09/22/20 aspirin 81 mg PO DAILY 09/22/20 furosemide 40 mg PO DAILY 09/22/20 nitroglycerin 0.4 mg SUBLINGUAL PRN PRN 09/22/20 trazodone 200 mg PO QHS 09/22/20 albuterol sulfate 2 puff INHALATION Q6H PRN #8.5 g 09/24/20 budesonide-formoterol [Symbicort] 2 puff INHALATION BID #10.2 g 09/24/20 guaifenesin [Mucus Relief ER] 1,200 mg PO BID #14 tab 09/24/20 prednisone 40 mg PO DAILY #10 tab 09/24/20 Hospital Course Summary of Care Provided Hospital Course: This patient was seen in conjunction with CODI Logan. I have independently interviewed and examined the patient and reviewed pertinent history, examination findings, laboratory and plan of management. I have reviewed the note and agree with the documented findings with the few additional points. In brief, patient is admitted for acute exacerbation probably secondary to bilateral pneumonia as outside ED chest x-ray shows bilateral pulmonary opacities. On bronchodilator, IV Solu-Medrol, ceftriaxone and azithromycin. Patient had high blood sugar, glucose in the 500s therefore Solu-Medrol changed to prednisone. Shortness of breath is better. 2D echo EF 65% with moderate TR, aortic sclerosis. Patient reports transcatheter aortic valve replacement and pacemaker alarm security or surveillance monitor shows paced rhythm. Patient does not have leg edema. Patient does not have any allergies therefore prescription for albuterol inhaler and Symbicort along with burst prednisone 40 mg daily for 5 days and Mucinex were given. Patient history of diabetes mellitus type 2 and chronic HFpEF. On Lantus 20 units twice daily and Humalog insulin 15 units 3 times daily with meals along with sliding scale insulin. Blood sugar is controlled. 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 Discharge medication reconciliation done. Discharge follow-up instructions completed. Discharge process discussed with the patient and all questions were answered to patient's satisfaction. Total time spent, exact 35 minutes on discharge meds reconciliation, examination, coordination of care with nurses and ancillary staff, review of imaging and blood test and discussion with the patient on follow-up instructions I have discussed my assessment with CODI Logan and orders have been reviewed. Physical Exam Narrative Seen and examined. Patient on room air. Not short of breath. Physical exam General: Alert, Oriented x3, Cooperative HEENT: Atraumatic, PERRLA, EOMI, Normocephalic Oral: No Gingival or Mucosal Lesions/ Ulcerations Neck: Supple, No JVD, Negative Carotid Bruits Lungs: Air entry diminished in bilateral lungs. Bilateral expiratory wheezing present. Mild shortness of breath on exertion. Cardiovascular: Regular rate, Regular Rhythm, Normal S1, Normal S2, systolic murmur over LLSB Abdomen: Bowel Sounds Present, Soft, Non Tender, Non-Distended : No renal angle tenderness. No suprapubic tenderness. Extremities: No edema, Capillary Refill Less than 3 Seconds Skin: No rashes, No breakdown Musculoskeletal: No Tenderness to Palpation of Joints or Extremities Neurological: Cranial nerves II-XII grossly intact, Deep Tendon Reflexes 2+/4 and Symmetrical, Neuro grossly intact Psych/Mental Status: Normal Affect, Appropriate. ABG / Lab / Microbiology Data Result Diagrams: 09/24/20 05:03 09/24/20 05:03 Discharge Plan Admission Admit Date/Time: 09/22/20 20:29 Primary Reason for Your Visit: Shortness of breath Attending Provider: Nasim Currie Instructions Additional Instructions / Restrictions: Patient Problems: Altered Health Status related to Hospitalization Patient Goals: *Optimal Level of Health *Keep Appointments *Medication Compliance *Remain Safe Discharge Orders/Prescriptions Prescriptions: New albuterol sulfate 90 mcg/actuation HFA aerosol inhaler 2 puff inhalation Q6H PRN (Reason: shortness of breath or wheezing) Qty: 8.5 RF: 0 prednisone 20 mg tablet 40 mg PO DAILY Qty: 10 RF: 0 Mucus Relief ER 1,200 mg tablet extended release 12hr 1,200 mg PO BID Qty: 14 RF: 0 budesonide-formoterol [Symbicort] 160-4.5 mcg/actuation HFA aerosol inhaler 2 puff inhalation BID Qty: 10.2 RF: 0 Continued Eliquis 5 mg tablet 5 mg PO BID RF: 0 trazodone 100 mg Tablet 200 mg PO QHS RF: 0 amlodipine 5 mg tablet 5 mg PO DAILY RF: 0 furosemide 40 mg tablet 40 mg PO DAILY RF: 0 aspirin 81 mg Tablet 81 mg PO DAILY RF: 0 Calcium 500 + D 500 tablet PO/SL DAILY RF: 0 nitroglycerin 0.4 mg sublingual PRN PRN (Reason: Chest Pain) RF: 0 Novolin N Flexpen 100 unit/mL (3 mL) Insulin Pen 20 unit SUBCUT QHS RF: 0 Novolin N Flexpen 100 unit/mL (3 mL) Insulin Pen 40 unit SUBCUT DAILY RF: 0 Referrals / Follow Up: ANYA SHOOK [Other] - Within 2 Weeks Disposition Disposition (needs filled in before D/C Order can be placed): Home, Self Care Charges/Coding Visit Charges Inpatient E&M: 83727 Disch Hosp
--- NOTE | 2020-09-24 13:26 | NURSING ---
Discharge teaching complete. Questions answered. Patient voices understanding of same.
== END 2020-09-24 13:40 | disposition home or self-care (01) | DRG 190 ==
PROVIDERS: Hospitalist; Physician Assistant; Admitting Provider Internal Medicine; Visit Provider Internal Medicine
DX: J44.1 Chronic obstructive pulmonary disease with (acute) exacerbation (principal); J18.9 Pneumonia, unspecified organism; I50.32 Chronic diastolic (congestive) heart failure; E11.9 Type 2 diabetes mellitus without complications; J44.0 Chronic obstructive pulmonary disease with (acute) lower respiratory infection; Z79.4 Long term (current) use of insulin; Z87.891 Personal history of nicotine dependence; Z95.0 Presence of cardiac pacemaker; Z79.01 Long term (current) use of anticoagulants; Z95.5 Presence of coronary angioplasty implant and graft; Z79.51 Long term (current) use of inhaled steroids; Z79.899 Other long term (current) drug therapy; Z95.2 Presence of prosthetic heart valve
CPT/HCPCS: 36415; 80048; 82962; 85025; 93306; 94640; 97162; 97166; 97802; 99251; Q9957; A4216; G0463; J3490